=== PATIENT | male | born 1955 | race Caucasian/White ===

== ENCOUNTER → 2025-04-23 | Outpatient (CLI) | payer SELFPAY, OTHER ==
--- NOTE | 2025-04-23 13:18 | MRI_ITS ---
PROCEDURE: SPINE LUMBAR (ROUTINE) 04/23/2025 REASON FOR EXAM: RADICULOPATHY TECHNIQUE: Procedure Code: MRISPL Modality: MR Procedure: SPINE LUMBAR (ROUTINE) COMPARISON: None. FINDINGS: Vertebrae: Present in height and signal. Alignment: Normal alignment. Conus Medullaris: Unremarkable. L1-2: Disc desiccation. Disc bulge. Mild inferior bilateral foramina stenosis. No significant canal stenosis. L2-3: Disc desiccation. Disc bulge asymmetric to the left. Facet joint arthropathy. Mild bilateral foramina stenosis. Mild canal stenosis. Narrowing of the left subarticular space. L3-4: Disc desiccation. Disc bulge. Facet joint arthropathy. Severe left and moderate right foramina stenosis. Moderate canal stenosis. L4-L5: Disc bulge. Left paracentral disc protrusion measures 3 mm. Narrowing of the left subarticular space. Facet joints arthropathy. Severe bilateral foramina stenosis. Mild canal stenosis. L5-S1: Disc desiccation. Disc bulge. Facet joint arthropathy. Severe bilateral foramina stenosis and mass-effect upon the exiting L5 nerves. Sacrum: Unremarkable. MRI/Spine Lumbar (Routine) IMPRESSION: Degenerate changes predominantly for moderate canal stenosis and severe left an d moderate right foramina stenosis at L3-L4. Severe bilateral foramina stenosis and narrowing of the left subarticular space at L4-L5. Severe bilateral foramina stenosis and compression upon the exiting L5 nerves a t L5-S1. Reading Location: [id number]
--- OUTSIDE RECORDS SUMMARY | 2025-04-23 17:38 | XMS RPT_ITS | CCD ---
Author Organization [facility] Care Team Providers Care Weld Lay Out Worker Name Role Phone Sergio Abebeer Unavailable Unavailable Pallani Grey Unavailable Unavailable Palutskelly, Grey Unavailable Unavailable HOSPITALIST PROGRAM, [facility] Unavailable Unavail able LAWRENCE COHEN Admitting Unavailable LAWRENCE COHEN Attending Unavailable LAWRENCE COHEN Primary Care Unavailable ASHLEY BENITEZ JR Attending Unavailable ASHLEY BENITEZ JR Primary Care Unavailable ASHLEY BENITEZ JR Admitting Unavailable Andrew Alberts Referring Unavailable Andrew Alberts Primary Care Unavailable Krish Pearce Attending Unavailable Problems Active Problems Problem Classification Problem Date Documented Da te Episodic/Chronic Osteoarthritis (1 source) Unilateral primary osteoarthritis, right hip; Translations: [UNILATERAL PRIMARY OSTEOARTHRITIS, RIGHT HIP] Onset: 12-20-2016 Chronic Other congenital anomalies (1 source) Other specified congenital deformities of hip; Translations: [OTHER SPECIFIED CONGENITAL DEFORMITIES OF HIP] Onset: 12-20-2016 Chronic Past or Other Problems Problem Classification Problem Date Documented Da te Episodic/Chronic Spondylosis; intervertebral disc disorders; other back problems (3 sources) Sciatica, left side; Translations: [Sciatica, left side] Onset: 04-26-2023 Episodic Results Test Name Value Interpretation Reference Range Facility Urgent Care Visit Reporton 0 10-03-2023 Urgent Care Visit Report [facility] [address], [address] [place], [place] [address] OFFICE VISIT Date of Service: 10/03/23 MR#: [id number] Acct: [id number] Name: REGINALDO MCHUGH Rep #: [id number] : 1955 Provider: BOBBY Strickland Age/Sex: 68/M Location: [facility] Status: Signed Intake Vital Signs 10/03/23 09:24 Height 1.7 m Weight: 73.482 kg BMI 25.3 BP 149/94 H Blood Pressure Location Rt brachial Position Sitting Pulse 98 Pulse Source Monitor Temp 98.4 F Temp Source Temporal Pulse Oximetry (%) 96 Intake Visit Reasons: SHINGLES Chief Complaint: rash Java Manager Required: No Allergies No Known Allergies Allergy (Unverified 10/03/23 09:26) Medications NK 10/03/23 [History Confirmed 10/03/23] HPI HPI Chief Complaint: rash Details: REGINALDO MCHUGH, is a 68 M who presents to the office today for rash. This began on at least last tuesday. He has painful burning sharp needle like pain in the right scalp, right ear, and right cheek. The issue started with a sore throat and lesions in the gums first. Inside the right cheek had vesicles first. Then the cheek, scalp, and ear erupted. It is a vesicular rash in clusters following the dermatome, none on the left side. He is taking motrin for pain. Eyes and vision are unaffected. ROS Const Constitutional: No body ache, chills, fatigue or fever(s) ENT ENT: Positive for ear or mastoid pain and sore throat Resp Respiratory: No cough Skin Skin: Positive for lesions, rash and skin pain Endo Endocrine: No fatigue Exam Const General: cooperative, healthy appearing, comfortable, no acute distress, well developed and well groomed Nutritional Appearance: average body habitus and well nourished Orientation: alert, awake and oriented x3 HENMT Head: normocephalic and atraumatic Ears: other (one blister on the tragus) Mouth: other (one lesion on the buccal mucosa right) Throat: posterior oropharynx normal, tonsils normal and uvula midline Resp Effort Inspection: normal respiratory effort, able to speak in complete sentences, symmetric chest movement and no cough Skin Other: scalp right side clusters of vesicles, mild surrounding erythema. right cheek scabbed over crusted lesions. Coding Level of Care Code Off vis,new,level 2 Diagnoses Shingles B02.9 Assessment and Plan Assessment and Plan (1) Shingles: Status: Acute Plan: Shingles along the V2/V3 dermatome right. He is outside the window for antivirals. The face is crusted and dry. The scalp has active vesicles. Explained about contagious nature of the disease process. Recommended motrin 800 q8h prn pain and tylenol 1000 mg po q8h prn pain. Explained that should the eye become involved he will need urgent evaluation by an eye doctor. No chronic medical issues/medication use. Clinical Quality Measures High Blood Pressure Screening/Follow Up High Blood Pressure follow-up Instructions: Recommended Blood Pressure Follow-Up Interventions: *Normal BP: No follow-up required for SBP < 120 mmHg and DBP < 80 mmHg: *Elevated BP: Patients with SBP of 120-129 mmHg and DBP < 80 mmHg: *Referral to Alternate/Primary Care Health Talent Associate OR * Follow-up with rescreen in 2 to 6 months AND recommend nonpharmacologic interventions * First Hypertensive BP Reading: Patients with one elevated reading of SBP >=130 mmHg OR DBP >= 80 mmHg: *Referral to Alternate/Primary Care Health Professional OR *Follow-up with rescreen in >1 day and < 4 weeks AND recommend nonpharmacologic interventions *Second Hypertensive BP Reading: *Second Hypertensive BP Reading:Patients with second elevated reading of SBP of 130-139 mmHg or DBP of 80-89 mmHg (and not SBP >=140 or DBP >=90): * Referral to Alternate/Primary Care Health Talent Associate OR *Nonpharmacological Intervention AND reassessment in 2-6 months AND an order for a laboratory test or ECG for hypertension *Second Hypertensive BP Reading: SBP >=140 or DBP >=90 *Referral to Alternate/Primary Care Healthcare Professional OR *Nonpharmacological Intervention AND BP lowering medication AND reassessment within 4 weeks AND an order for a laboratory test or ECG for hypertension BP Second Hypertensive Readings: For both questions related to the second hypertensive readings, orders for lab/ECG need to be placed in addition to responding to the non-pharmacological and follow up questions. 10/03/23 0941 Date _ Krish Coreas Signature: Date _ (if applicable) CC: [facility] with eGFRon 09-13-2023 AGE 68 years Normal [facility] Comment on above: Performed By: #### [id number] #### [facility],[address] [place] [address] 21607 Anion gap [Moles/Vol] 8 mmol/L Low 10 - 20 [facility] Comment on above: Performed By: #### [id number] #### [facility],[address] [place] [address] 22916 BMP with eGFR Normal [facility] Comment on above: Result Comment: BASIC METABOLIC PANEL Performed By: #### [id number] #### [facility],[address] [place] [address] 78619 Calcium [Mass/Vol] 8.5 mg/dL Normal 8.5 - 10.1 [facility] Comment on above: Performed By: #### [id number] #### [facility],[address] [place] [address] 24050 Chloride [Moles/Vol] 102 mmol/L Normal 98 - 107 [facility] Comment on above: Performed By: #### [id number] #### [facility],[address] [place] [address] 11550 CO2 [Moles/Vol] 30.7 mmol/L Normal 21.0 - 32.0 [facility] Comment on above: Performed By: #### [id number] #### [facility],[address] [place] [address] 19376 Creatinine [Mass/Vol] 1.16 mg/dL Normal 0.70 - 1.30 [facility] Comment on above: Performed By: #### [id number] #### [facility],[address] [place] [address] 73967 GFR/1.73 sq M.predicted among non-blacks MDRD (S/P/Bld) [Vol rate/Area] mL/min/{1.73_m2} Normal 60 - 999 [facility] Comment on above: Performed By: #### [id number] #### [facility],[address] [place] [address] Result Comment: ACCO RDING TO THE NATIONAL KIDNEY DISEASE EDUCATION PROGRAM(NKDE), A NORMAL eGFR IS A VALUE GREATER THAN OR EQUAL TO 60 ML/MIN/1.73 SQ METERS. CHRONIC KIDNEY DISEASE: <60mL/MIN/1.73 SQ METERS KIDNEY FAILURE: <15mL/MIN/1.73 SQ METERS THIS TEST SHOULD ONLY BE USED FOR PATIENTS 18 YEARS OF AGE AND OLDER. Glucose [Mass/Vol] 97 mg/dL Normal 74 - 106 [facility] Comment on above: Performed By: #### [id number] #### [facility],[address] [place] [address] Potassium [Moles/Vol] 4.0 mmol/L Normal 3.5 - 5.1 [facility] Comment on above: Performed By: #### [id number] #### [place] [address] Sodium [Moles/Vol] 137 mmol/L Normal 136 - 145 [facility] Comment on above: Performed By: #### [id number] #### [facility],[address] [place] [address] Urea nitrogen [Mass/Vol] 16 mg/dL Normal 7 - 18 [facility] Comment on above: Performed By: #### [id number] #### [place] [address] CBC + DIFFon 09-13-2023 Baso # 0.03 x10EE3/UL Normal 0.00 - 0.10 [facility] Comment on above: Performed By: #### [id number] #### [place] [address] Basophils/100 WBC (Bld) 0.4 % Normal 0.0 - 2.0 [facility] Comment on above: Performed By: #### [id number] #### [facility],[address] [place] [address] CBC + DIFF Normal [facility] Comment on above: Result Comment: CBC-COMPLETE BLOOD COUNT Performed By: #### 2 [id number] #### [place] [address] EO # 0.16 x10EE3/UL Normal 0.00 - 0.50 [facility] Comment on above: Performed By: #### [id number] #### [place] [address] Eosinophils/10 0 WBC (Bld) 2.6 % Normal 0.0 - 7.0 [facility] Comment on above: Performed By: #### [id number] #### [place] [address] Erythrocyte distribution width (RBC) [Ratio] 12.7 % Normal 12.0 - 15.6 [facility] Comment on above: Performed By: #### [id number] #### [place] [address] Hematocrit (Bld) [Volume fraction] 38.9 % Low 40.0 - 52.0 [facility] Comment on above: Performed By: #### [id number] #### [place] [address] Hemoglobin (Bld) [Mass/Vol] 13.2 g/dL Normal 13.0 - 17.5 [facility] Comment on above: Performed By: #### [id number] #### [place] [address] Lymph # 1.51 x10EE3/UL Normal 0.80 - 2.80 [facility] Comment on above: Performed By: #### [id number] #### [place] [id number] Lymphocytes/10 0 WBC (Bld) 24.2 % Normal 20.0 - 45.0 [facility] Comment on above: Performed By: #### [id number] #### [address],[place] [address] MANUAL DIFF N/A Normal [facility] Comment on above: Performed By: #### [id number] #### [facility],[address] [place] [address] MCH (RBC) [Entitic mass] 32 pg Normal 27 - 33 [facility] Comment on above: Performed By: #### [id number] #### [place] [address] MCHC 34 X10 3 Normal 32 - 36 [facility] Comment on above: Performed By: #### [id number] #### [place] [address] MCV (RBC) [Entitic vol] 95 fL Normal 81 - 98 [facility] Comment on above: Performed By: #### [id number] #### [place] [address] Faulk # 0.61 x10EE3/UL Normal 0.20 - 1.00 [facility] Comment on above: Performed By: #### [id number] #### [place] [address] MONOS % 9.8 % Normal 0.0 - 10.0 [facility] Comment on above: Performed By: #### [id number] #### [place] [address] Morphology Terrell (Bld) [Interp] N/A Normal [facility] Comment on above: Performed By: #### [id number] #### [place] [address] Neut # 3.93 x10EE3/UL Normal 1.50 - 7.10 [facility] Comment on above: Performed By: #### [id number] #### [place] [address] Neutrophils/10 0 WBC (Bld) 62.9 % Normal 46.0 - 76.0 [facility] Comment on above: Performed By: #### [id number] #### [address] [address] PLATELET 294 x10EE3/UL Normal 150 - 450 [facility] Comment on above: Performed By: #### [id number] #### [facility],[address] [place] [address] Platelet mean volume (Bld) [Entitic vol] 7.4 fL Normal 6.4 - 10.5 [facility] Comment on above: Result Comment: AUTOMATED DIFFERENTIAL Performed By: #### 2 [id number] #### [address] [address] RBC 4.10 x 10EE6/UL Low 4.50 - 6.00 [facility] Comment on above: Performed By: #### [id number] #### [address] [address] WBC 6.2 x 10EE3/UL Normal 4.5 - 10.8 [facility] Comment on above: Performed By: #### [id number] #### [address] [address] MR LUMBAR SP WO CONTRASTon 1 06-26-2022 MR LUMBAR SP CONTRAST [place] [address] Patient: REGINALDO MCHUGH Phone#: : 1955 Age: 68 Gender: M Pt. Type: Out Account: [id number] Location: Ordering: LAWRENCE COHEN Exam Date: 04/26/2023/7:48 Family Phys: Charge Code: 588089 Physician: Vinton Order #: [id number] Dose#: PROCEDURE: MRI LUMBAR SPINE WITHOUT CONTRAST COMPARISON: None. INDICATIONS: Left sided sciatica TECHNIQUE: A variety of imaging planes and parameters were utilized for visualization of suspected pathology. FINDINGS: PARASPINAL AREA: Normal with no visible mass. BONES: No fracture, pars defect, or osseous lesion. CORD/CAUDA EQUINA: Normal caliber, contour, and signal intensity. LUMBAR DISC LEVELS: L1-L2: No significant disc/facet abnormality, spinal stenosis, or foraminal stenosis. L2-L3: Mild annular disc bulging. There is mild narrowing of the spinal canal. There is mild bilateral foraminal narrowing. L3-L4: Mild annular disc bulging is present. There is mild bilateral foraminal narrowing. L4-L5: Broad-based central disc bulging is present. There is bony hypertrophy at the articular facettes. There is mild to moderate spinal canal narrowing. There is severe right foraminal narrowing. There is moderate left foraminal narrowing. L5-S1: Broad-based central disc bulge is present. Bony hypertrophy is present at the articular facettes. There is severe bilateral foraminal narrowing. CONCLUSION: 1. Annular disc bulging is present with moderate to severe foraminal impingement at the L4-5 and L5-S1 levels. Dictated by: Georgette Douglass MD on 04/27/2023 at 11:47 Approved by: Georgette Douglass MD on 04/27/2023 at 11:54 Normal [facility] HGB HCTon 12-21-2016 Hematocrit (HCT) 30.3 % Low 41.0-53.0 [facility] Comment on above: Performed By: #### ####[facility] [address] [place] [address] Hemoglobin mass conc (Bld) 10.9 g/dL Low 14.0-18.0 [facility] Comment on above: Performed By: #### ####[facility] [address] [place] [address] HIP W/PEL 2 OR 3 VIEW-RIGHTo n 12-20-2016 HIP W/PEL 2 OR 3 VIEW-RIGHT REGINALDO MCHUGH Male [id number] physician: Grey Abebe LOC:3WA [id number] physician: Grey Abebe 1955 61 DOS: 12/20/16 Acc#: [id number]/Proc: HIP W/PEL 2 OR 3 VIEW-RIGHTDept: RADIOLOGYINDICATION: Post operative. TECHNIQUE: Two view(s) of the right hip. COMPARISON: None Available. FINDINGS: The total hip arthroplasty is in anatomic alignment. There is no displacedfracture. There is noevidence of orthopedic hardware complications. No soft tissue abnormality isseen. IMPRESSION: Postop right hip arthroplasty.. 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 POSTOPERATIVE DIAGNOSIS: Severe right hip arthritis secondary to severe hipdysplasia. OPERATION: A left uncemented total hip arthroplasty utilizing a two incisiontechnique. Components were: Cup: A 56 mm uncemented G7 cup with screw fixation x3. Liner: Posterior elevated 36 mm vitamin E enriched liner. Stem: Was #10 uncemented ML taper stem. Neck: With a letter BB retroverted +0 neck. Head: A 36 mm ceramic head. SURGEON: Grey Abebe M.D. GAS PLANT TECHNICIAN: ANESTHESIA: General. BLOOD LOSS: 100 mL. FLUORO TIME: An 11 seconds. DAP: A 22.79 cGy/cm2. ANTERIOR INCISION: Was 3 inches. POSTERIOR INCISION: Was 1-3/4 inches. 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 Care was taken removing extensive anteriorosteophytes during the initial exposure. The cup itself was placed in slightlyless anteversion,but did use a posterior elevated lip. When the femoral stem was being broached, the patient hadincrease of about 7-8 degrees of anteversion and this was able to be nicelycorrected at the timeof the trial reduction using the retroverted +0 neck. He had excellentstability. We did plan tolengthen him, but not to the equal his leg length for fear of not being able tocompensatepostoperatively. OPERATIVE NOTE: The patient was brought down to the Operating Room and placedon the operatingtable in the supine position. Prophylactic I.V. antibiotics were given.Following theadministration of anesthesia and an inflatable bolster was then placedunderneath the patientsbuttock and the leg was then prepped and draped in the usual fashion. Theprocedure was begun bybringing in the C-arm to determine the location for the anterior incision. Once this was done, aincision was then made parallel to the inguinal crease. The incision wascarried down through theskin and into the subcutaneous tissue. Electrocautery was used to control anybleeding. Thefascia was then split laterally along the tissue planes by blunt dissection.The interval betweenthe tensor and sartorius was then nicely developed. A protective liner guard was placed. Therectus muscle was then identified. It was then freed along its medial borderand retractedlaterally. The indirect head of the rectus was also identified and this wasretracted medially offthe capsule. Once this was done, the retractors were then carefully positionedon each side of thecapsule as well as superiorly. Once the capsule was identified, the capsule was then incised alongthe neck shaft angle with the electrocautery and an anterior capsulectomy wasthen performed. Atthat time, a guidepin was then placed for localization purposes and the C-armwas then brought in.Once this was determined, the oscillating saw was then used to make thedefinitive neck cutfollowed by a second subcapital cut made. The wedge of bone was then removed,followed by thefemoral head. At this time, the C-arm was then brought in to check and verify the locationfor the neck cut.Once this was determined, attention was directed towards preparation of theacetabulum. Retractorswere then placed carefully, inferior medially and posteriorly as well assuperiorly. The labrumand pulvinar were then excised. The acetabulum was then reamed. This was donewith the assistanceof the C-arm. Once I was able to get into good bleeding bone, the acetabulumwas then irrigatedand a metal cup was then impacted. This was then seated and it was then heldwith 3 corticalcancellous screws. The acetabulum was then irrigated and the liner was placed. Attention was thendirected towards preparation to the femur. The bolster was then inflated and the opposite leg was then lowered. Thecurved obturator wasthen placed from inside out. A second incision was then made posteriorly. Theelectrocautery wasused to control any bleeding. By scissor spreading dissection this was thencarried down to thecapsule which was then opened posteriorly. The T handled awl was then placeddown the medullarycanal followed by the rasp. The canal was then sequentially rasped up to thefinal size with theassistance of the C-arm getting very good fit and fill. Once this was done, the ML taper stem wasthen opened. This was then coaxed through the soft tissue and then using thefinal impactor wasthen seated solidly into the femoral canal. Once that was verified with theC-arm, the hip wasthen inspected from anteriorly. The medular neck/head was then determined, and a trial reductionwas then performed. Once stability was determined, the actual components werethen opened andimpacted into position. Final reduction was then performed. The hip was thenirrigated and thenafter clearing the acetabulum, the hip was then reduced. It was then broughtthrough a full stablerange of motion. There was no evidence of any impingement or any hint of anydislocation eitheranteriorly or posteriorly. At this time, final C-arm images were then takenshowing excellentpositioning of the cup and fill of the canal. There was no evidence of anyintraoperative injury.The attention was then directed towards closure. The wounds were then irrigated with antibiotic Pulsavac. The fascia was thenclosed with arunning #0 Vicryl suture closure. The subcutaneous tissue was closed with #2-0Vicryl followed byMaxon subcuticular closure followed by Durabond glue closure. The posteriorwound was closed in asimilar fashion. A sterile dressing was then applied. The patient was thenawaken, extubated andbrought to the Recovery Room. The patient tolerated the procedure well. RUTH @ 11:27 @ 12:20 # [id number] Grey Abebe M.D. Electronically Signed Date/Time: 12/21/16704 Electronically Signed Date/Time: 12/21/16704 [facility] MRPNon 12-20-2016 MRPN Patient Name:REGINALDO MCHUGH MR #: [id number]: Acc#: [id number] Admit: 12/20/16DOB: 1955 Age: 61 Sex: MDictated By: Dr. Marie Greshamgnshila Physician:SIGNING PHYSICIAN: DATE OF SERVICE: 12/20/2016 A 61-year-old, admitted under Dr. Abebe for right hip arthroplasty. Thepatient does not haveany medical problem. He does not take any prescribed medication. He denied any complaint prior tosurgery. His vitals reviewed, within normal limits. He follows with hisprimary care doctor on aregular basis. The patient will be seen by hospitalist service on a p.r.n.basis. No medicalproblem that we are aware of. Call us if needed. [place] @ 15:06 @ 17:20 # [id number] Marie Bryant M.D. Electronically Signed Date/Time: 12/21/1640 Electronically Signed Date/Time: 12/21/1640 [facility] PDJenny 12-20-2016 PD.REGINALDO BOLANOS Male [id number] physician: ADM IN [facility] [id number] physician: Grey Abebe 1955 61 DOS: Anesthesia Assessment- ProcedureTime of Last PO Intake: 00:00PreProcedure Diagnosis: right hip oaSurgeon: PALUTSISProcedure to be Performed: right hip two incision arthroplasy- AllergiesLatex Allergy: NoAllergy to contrast or iodine: NoAllergy to Betadine: No- Anesthesia HistoryHx Anesthesia Reactions: NoDelayed Emergence: NoPO NV: NoDifficulty with Intubation: NoResistant to medications: No- Surgical HistoryName of Surgery/Procedure: NEVER HAD ANY SURGERIES;- Cardiovascular HistoryHx Cardiac Disorders: NoHx Angina: NoHx Peripheral Vascular Disease: NoHx Congestive Heart Failure: NoHx Cardiomyopathy: NoHx Deep Vein Thrombosis: NoHx Cardiac Surgery: NoHx Angioplasty: NoHx Coronary Stent: NoHx Cardiac Catherization: NoHx Pacemaker: NoHx Internal Defibrillator: NoHx Anticoagulant Therapy: NoHx Stress Test: NoHx Irregular Heartbeat: NoHx Hypertension: NoHx Hypotension: No- Endocrine/ HistoryHx Endocrine Disorders: NoHx of Diabetes: NoHx Hyperthyroidism: NoHx Hypothyroidism: NoObesity: No- Respiratory HistoryHx Respiratory Disorders: NoHx Chronic Obstructive Pulmonary Disease (COPD): NoHx Asthma: NoHx Emphysema: NoHx Tuberculosis: NoHx Pulmonary Embolism: No- GI Medical HistoryHx Gastrointestinal Disorders: NoHx Hepatitis: NoHx Gastrointestinal Bleed: NoHx GERD: NoHx Diverticulitis: No- Musculoskelatal DisordersHx Musculoskeletal Disorders: YesHx Arthritis: YesHx Rheumatoid Arthritis: NoHx Back Pain: Yes (ASSOCIATED WITH HIP)- Neurological DisordersHx Neurological Disorders: NoHx Cerebrovascular Accident: NoHx Transient Ischemic Attacks (TIA): NoHx Dementia: NoHx Alzheimer's Disease: NoHx Parkinson's Disease: NoHx Seizures: NoHx Multiple Sclerosis: NoHx Cerebral Palsy: NoHx Peripheral Neuropathy: No- Psych Medical HistoryHx Psychiatric Problems: NoHx Depression: NoHx Anxiety: Yes- Heme Medical HistoryHx Blood Disorders: No- Other Medical HistoryHx Hospitalization: YesHx Cancer: NoHx Blood Transfusions: NoHx Of or Current Smoker: Yes (VAPOR)Hx Alcohol Use: Yes (5 OZ WINE DAILY)Hx Street Drug Use: NoRecent URI: No- AssessmentHeart Sounds: S1 X8Adtcqi Sounds: ClearAirway Maintained: YesPain Score: 2Temperature (celsius): 36.6 CPulse Rate: 78Respiratory Rate: 16O2 Sat by Pulse Oximetry: 96Blood Pressure: 140/93Height: 1.7 mWeight (kg): 71 kg- AirwayMAL: 2TMD: Greater than 3Condition of Teeth: Dentures Upper- Anesthesia Plan of CareASA Class: ASA 1Anesthesia Type: GETA, GALMAVAP: If any of the above risk factors are selected Hi-Lo Endotracheal Tubes will be considered andpreoperative oral care will be completed.Arterial Line: NoCentral Line: NoPeripheral Nerve Block: NoPost Op Pain Control: Parental IM/IV- Anesthesia NotesAnesthesia Notes: Yes-:Home Medications:Aspirin [Low Dose Aspirin *] 81 mg PO BID #40 tab 12/20/16Flurbiprofen 100 mg PO BID 12/20/16 [Confirmed 12/20/16]Hydrocodone-Acetaminophen [Hydrocodone/Acetaminophen 5-325 mg] 1 - 2 tab PO Q6HR PRN #50 tab 12/20/16Tadalafil [Cialis] 10 mg PO PRN PRN 12/20/16 [Confirmed 12/20/16]Allergies:No Known Drug Allergy Allergy (Unverified 12/20/16 08:23)12/20/16 0913 Electronically Signed Date/Time: 12/20/16 [facility]16 [facility] Patient name: REGINALDO MCHUGH MR#: [id number]: 3WA Acc#: [id number] Date: 12/20/16DOB: 1955 Age: 61 Sex: MDictated By: Oj Abebe Physician: Oj Abebe PHYSICIAN: DATE OF SERVICE: 12/20/2016 CHIEF COMPLAINT: Severe right hip arthritis. HISTORY OF PRESENT ILLNESS: This is a 61-year-old rather active gentleman whohas had issues withright hip arthritis, possibly congenital in nature. For the last 5 years he was told that he wouldneed a total hip replacement. He has a severe limp when he gets around. [place] he has labelling trees. He uses a cane.He has never had aninjection to the hip. He complains of classic pain in his right groin andproximal leg. Based onhis examination as described below showing severe symptomatic arthritis, hepresents at this timefor an elective right total hip arthroplasty utilizing a 2 incision technique. PAST MEDICAL HISTORY: Significant for denying any asthma, diabetes, pepticulcer disease,hypertension. PAST SURGICAL HISTORY: He has no prior surgery. ALLERGIES: He has no known allergies. MEDICATIONS: He does not take any medication other than anti-inflammatory. FAMILY HISTORY: Significant for heart disease. PHYSICAL EXAMINATION: GENERAL: Shows a 61-year-old gentleman who walks around with arather significant limp. He is alert and oriented. HEENT: Unremarkable. The sclerae are nonicteric. NECK: Supple. CARDIOVASCULAR: Reveals he has a regular rate and rhythm. No murmurs. LUNGS: Clear to auscultation. EXTREMITIES: His lower extremity examination shows that his left hip isunremarkable withexcellent range of motion. The right hip is markedly limited. He has 10degrees of internalrotation and maybe 15 degrees of external rotation with pain at the endpoint.He is down on hisquad somewhat on his right leg. He has full range of motion of his right knee. Pulses are intactdistally. 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 IMPRESSION: Symptomatic right hip osteoarthritis. At this point, we did talkabout a possibleinjection which I do not think is going to give him any potential long-termimprovement. He wouldlike to go ahead and see about having this treated with a total hip replacementspecificallyutilizing a 2 incision technique. I did go over with him the underlying risksand benefitsincluding, but not limited to, the possibility of infection, deep venousthrombosis, dislocation aswell as possible intraoperative bone and nerve injury. We will proceed asoutlined with a righttotal hip arthroplasty. GILBERTO/SINA @ 18:02 @ 21:20 # [id number] Grey Abebe M.D. Electronically Signed Date/Time: 12/20/16707 Electronically Signed Date/Time: 12/20/16707 Normal [facility] Encounters Encounter Date Encounter Type Care Provider Facility Start: 10-03-2023 End: 10-03-2023 ambulatory Andrew Alberts Facility:[facility] Start: 09-13-2023 End: 09-13-2023 ambulatory ASHLEY BENITEZ [facility] Start: 04-26-2023 End: 04-26-2023 ambulatory LAWRENCE COHEN [facility] Start: 12-20-2016 End: 12-21-2016 Evaluation and management of inpatient Grey Abebe Facility:[facility] Payers Date Payer Category Payer Self-pay 2023 Unknown [id number] 1955 Unknown [id number] 1955 Unknown [id number] Unknown [id number] Unknown Unknown [id number] Summary Purpose Family History No Family History Records FoundNo Family History Records FoundNo Family History Records Found Advance Directives No Advanced Directives Records FoundNo Advanced Directives Records FoundNo Advanced Directives Records Found Additional Source Comments (unrecognized sect ion and content) No Status Records FoundNo Status Records FoundNo Status Records Found INFORMATION SOURCE (unrecogn ized section and content) DATE CREATED AUTHOR 11/30/2017 [facility] DATE CREATED AUTHOR AUTHOR'S ORGANIZ ATION 09/14/2023 [facility] DATE CREATED AUTHOR AUTHOR'S ORGANIZ ATION 10/03/2023 [facility] FOR RECORDS PERTAINING TO PATIENTS WHO ARE OR HAVE BEEN ENROLLED IN A CHEMICAL DEPENDENCY/SUBSTANCEABUSE PROGRAM, SOME INFORMATION MAY BE OMITTED. This clinical summary was aggregated from multiple sources. Caution should be exercised in using it in the provision of clinical care. This summary normalizes information from multiple sources, and as a consequence, information in this document may materially change the coding, format and clinical context of patient data. In addition, data may be omitted in some cases. CLINICAL DECISIONS SHOULD BE BASED ON THE PRIMARY CLINICAL RECORDS. [employer] [facility]. provides no warranty or guarantee of the accuracy or completeness of information in this document.
== END | disposition home or self-care (01) ==
LOC: MRI 13:14
PROVIDERS: PCP Nurse Practitioner Family; Referring Provider Anesthesiology Pain Medicine; Visit Provider Anesthesiology Pain Medicine
DX: M54.12 Radiculopathy, cervical region (principal); M96.1 Postlaminectomy syndrome, not elsewhere classified
CPT/HCPCS: 72148